=== PATIENT | female | born 1995 | race Caucasian/White ===

== ENCOUNTER 2020-05-14 11:09 | Outpatient (CLI) | payer OTHER, SELFPAY ==
[2020-05-14 11:53] LABS: Basophils Percent Auto 0.5 % (0.2-1.2); Eosinophils Absolute Auto 0.1 K/mm3 (0-0.3); Eosinophils Percent Auto 1.2 % (0-4.4); Hematocrit 38.5 % (37.0-47.0); Hemoglobin 13.1 g/dL (12.0-15.0); Immature Granulocyte Absolute 0.03 K/mm3 (0.00-0.031); Immature Granulocyte Percent A 0.4 % (0-0.5); Lymphocytes Absolute Auto 1.54 K/mm3 (0.9-3.2); Lymphocytes Percent Auto 20.5 % (18.3-44.2); Mean Corpuscular Hemoglobin 29.7 pg (26-34); Mean Corpuscular Volume 87.3 fl (80-100); Mean Platelet Volume 11.6 fl (7.4-10.4); Monocytes Absolute Auto 0.5 K/mm3 (0.1-0.6); Neutrophils Absolute Auto 5.4 K/mm3 (1.3-6.7); Neutrophils Percent Auto 71.4 % (45.5-73.1); Platelet Count Result 196 k/mm3 (150-375); Red Blood Count 4.41 M/mm3 (4.2-5.4); Red Cell Distribution Width 13.1 % (11.5-14.5); White Blood Count 7.5 K/mm3 (4.5-10.0)
[2020-05-14 11:58] LABS: Add Urine Microscopic? YES; Appearance Urine Clear (Clear); Bacteria Urine Trace /hpf; Bilirubin Urine Negative (Negative); Blood Urine Negative (Negative); Color Urine Straw (Yellow); Glucose Urine UA Negative (Negative); Ketones Urine Negative (Negative); Leukocyte Esterase Ur 3+ LEU/UL (NEGATIVE); Mucus Urine Rare /lpf; Nitrate Urine Negative (Negative); Protein Urine Negative (Negative); Specific Grav Ur 1.012 (1.001-1.035); Squamous Epithelial Cell Urine Many /hpf (Few); Urobilinogen Urine Negative mg/dL (<2.0)
[2020-05-14 12:48] LABS: HIV 1/2 Ab P24 Ag Result Negative (Negative)
[2020-05-14 12:49] LABS: Vitamin D 25 Hydroxy 37.1 ng/mL
[2020-05-14 13:10] LABS: Hepatitis B Surface Antigen Negative (Negative)
[2020-05-14 13:22] LABS: Hepatitis C Virus Antibody Negative (Negative)
[2020-05-16 07:05] LABS: Rapid Plasma Reagin Non-Reactive (NonReactive)
[2020-05-16 14:17] LABS: Hematocrit 38.8 % (35.0-45.0); Hemoglobin 13.1 g/dL (11.7-15.5); MCH 29.8 pg (27.0-33.0); MCV 88.4 FL (80.0-100.0); RDW 13.6 % (11.0-15.0); Red Blood Cell Count 4.39 Mill/uL (3.80-5.10)
== END 2020-05-14 11:10 | disposition home or self-care (01) ==
PROVIDERS: Visit Provider Obstetrics & Gynecology
DX: Z34.90 Encounter for supervision of normal pregnancy, unspecified, unspecified trimester (principal)
CPT/HCPCS: 36415; 81001; 82306; 83021; 84443; 85025; 86592; 86703; 86762; 86787; 86803; 86850; 86900; 86901; 87086; 87340; G0432

== ENCOUNTER 2020-07-26 11:37 | Outpatient (CLI) | payer OTHER, SELFPAY ==
--- NOTE | 2020-07-26 | ECG_ITS ---
Measurements Intervals [place] Rate: 74 P: 43 OK: 153 QRS: 16 QRSD: 86 T: 18 QT: 344 QTc: 382 Interpretive Statements SINUS RHYTHM CANNOT RULE OUT SEPTAL INFARCT, AGE INDETERMINATE ABNORMAL ECG Electronically Signed On 07-26-2020 12:06:41 CDT by Alfred Roca D.O.
[2020-07-26 12:04] LABS: Alanine Aminotransferase 12 U/L (4-35); Albumin Level 3.6 g/dL (3.5-5.1); Alkaline Phosphatase 54 U/L (38-126); Anion Gap 3 mmol/L (8-16); Aspartate Amino Transferase 19 U/L (14-36); Bilirubin,Total 0.1 mg/dL (0.2-1.3); Blood Urea Nitrogen 11 mg/dL (7-17); Calcium 8.8 mg/dL (8.4-10.2); Carbon Dioxide 28 mmol/L (22-30); Chloride 104 mmol/L (98-107); Estimated Glomerular Filt Rate > 60; Glucose 80 mg/dL (65-105); Potassium 4.4 mmol/L (3.4-5.0); Sodium 135 mmol/L (137-145)
== END 2020-07-26 11:38 | disposition home or self-care (01) ==
LOC: ANHLAB 11:40
PROVIDERS: PCP Obstetrics & Gynecology; Visit Provider Obstetrics & Gynecology
DX: R55 Syncope and collapse (principal); R94.31 Abnormal electrocardiogram [ECG] [EKG]
CPT/HCPCS: 36415; 80053; 93005

== ENCOUNTER 2020-08-20 10:49 | Outpatient (CLI) | payer OTHER, SELFPAY ==
[2020-08-20 12:16] LABS: Basophils Absolute Auto 0.1 K/mm3 (0.0-0.1); Basophils Percent Auto 0.6 % (0.2-1.2); Eosinophils Absolute Auto 0.1 K/mm3 (0-0.3); Eosinophils Percent Auto 1.1 % (0-4.4); Hematocrit 36.6 % (37.0-47.0); Immature Granulocyte Absolute 0.05 K/mm3 (0.00-0.031); Immature Granulocyte Percent A 0.6 % (0-0.5); Lymphocytes Absolute Auto 1.46 K/mm3 (0.9-3.2); Lymphocytes Percent Auto 17.4 % (18.3-44.2); Mean Corpuscular HGB Conc 32.8 g/dl (32-36); Mean Corpuscular Hemoglobin 30.2 pg (26-34); Mean Corpuscular Volume 92.2 fl (80-100); Mean Platelet Volume 11.8 fl (7.4-10.4); Monocytes Absolute Auto 0.4 K/mm3 (0.1-0.6); Monocytes Percent Auto 4.8 % (2.6-8.5); Neutrophils Absolute Auto 6.3 K/mm3 (1.3-6.7); Neutrophils Percent Auto 75.5 % (45.5-73.1); Platelet Count Result 164 k/mm3 (150-375); Red Blood Count 3.97 M/mm3 (4.2-5.4); Red Cell Distribution Width 13.3 % (11.5-14.5); White Blood Count 8.4 K/mm3 (4.5-10.0)
[2020-08-20 12:36] LABS: Glucose 1 Hour PP 50gm Dose 108 mg/dL
== END 2020-08-20 10:50 | disposition home or self-care (01) ==
PROVIDERS: Visit Provider Obstetrics & Gynecology
DX: Z34.92 Encounter for supervision of normal pregnancy, unspecified, second trimester (principal); Z3A.26 26 weeks gestation of pregnancy
CPT/HCPCS: 36415; 82947; 85025

== ENCOUNTER 2020-10-01 11:04 | Outpatient (CLI) | payer OTHER, SELFPAY ==
[2020-10-01 11:36] LABS: Basophils Percent Auto 0.4 % (0.2-1.2); Eosinophils Absolute Auto 0.1 K/mm3 (0-0.3); Eosinophils Percent Auto 1.3 % (0-4.4); Hematocrit 36.7 % (37.0-47.0); Hemoglobin 11.9 g/dL (12.0-15.0); Immature Granulocyte Absolute 0.05 K/mm3 (0.00-0.031); Immature Granulocyte Percent A 0.5 % (0-0.5); Lymphocytes Absolute Auto 1.44 K/mm3 (0.9-3.2); Lymphocytes Percent Auto 14.7 % (18.3-44.2); Mean Corpuscular HGB Conc 32.4 g/dl (32-36); Mean Corpuscular Hemoglobin 29.8 pg (26-34); Mean Corpuscular Volume 91.8 fl (80-100); Mean Platelet Volume 12.1 fl (7.4-10.4); Monocytes Absolute Auto 0.7 K/mm3 (0.1-0.6); Monocytes Percent Auto 6.7 % (2.6-8.5); Neutrophils Absolute Auto 7.5 K/mm3 (1.3-6.7); Neutrophils Percent Auto 76.4 % (45.5-73.1); Platelet Count Result 136 k/mm3 (150-375); Red Cell Distribution Width 13.2 % (11.5-14.5); White Blood Count 9.8 K/mm3 (4.5-10.0)
[2020-10-01 12:26] LABS: HIV 1/2 Ab P24 Ag Result Negative (Negative)
[2020-10-02 08:45] LABS: Rapid Plasma Reagin Non-Reactive (NonReactive)
== END 2020-10-01 11:05 | disposition home or self-care (01) ==
PROVIDERS: Visit Provider Obstetrics & Gynecology
DX: Z34.90 Encounter for supervision of normal pregnancy, unspecified, unspecified trimester (principal)
CPT/HCPCS: 36415; 85025; 86592; 86703; G0432

== ENCOUNTER 2020-11-08 12:03 | Observation (INO) | payer OTHER, SELFPAY ==
--- NOTE | 2020-12-06 17:40 | PM.OBTRLD ---
OB - Triage/Final Diagnosis Visit Information Comments/Additional reasons for admission: I have assessed the risk for this patient, Porfirio Kong, and determined that she would benefit from observation care. Final Diagnosis (1) Cramping affecting , antepartum: Code(s): O26.899 - Other specified related conditions, unspecified trimester; R10.9 - Unspecified abdominal pain Status: Acute
== END 2020-11-08 13:55 | disposition home or self-care (01) ==
PROVIDERS: Admitting Provider Student in an Organized Health Care Education/Training Program; Visit Provider Student in an Organized Health Care Education/Training Program
DX: O26.899 Other specified pregnancy related conditions, unspecified trimester (principal); R10.9 Unspecified abdominal pain; Z3A.00 Weeks of gestation of pregnancy not specified
CPT/HCPCS: G0378; G0379

== ENCOUNTER 2020-11-20 21:07 | Inpatient (IN) | payer OTHER, SELFPAY ==
[2020-11-20] VITALS (9 sets, daily range): BP systolic 115–123; BP diastolic 66–80; PULSE 79–91; RESP 16; TEMP 36.1; BMI 32.6
[2020-11-20 22:49] LABS: Basophils Percent Auto 0.2 % (0.2-1.2); Eosinophils Absolute Auto 0.1 K/mm3 (0-0.3); Eosinophils Percent Auto 1.3 % (0-4.4); Hematocrit 37.3 % (37.0-47.0); Hemoglobin 11.6 g/dL (12.0-15.0); Immature Granulocyte Absolute 0.05 K/mm3 (0.00-0.031); Immature Granulocyte Percent A 0.6 % (0-0.5); Immature Platelet Fraction Pct 16.3 % (0.9-11.2); Lymphocytes Absolute Auto 1.52 K/mm3 (0.9-3.2); Lymphocytes Percent Auto 18.2 % (18.3-44.2); Mean Corpuscular HGB Conc 31.1 g/dl (32-36); Mean Corpuscular Hemoglobin 28.4 pg (26-34); Mean Corpuscular Volume 91.2 fl (80-100); Mean Platelet Volume 13.4 fl (7.4-10.4); Monocytes Absolute Auto 0.7 K/mm3 (0.1-0.6); Monocytes Percent Auto 8.6 % (2.6-8.5); Neutrophils Absolute Auto 5.9 K/mm3 (1.3-6.7); Neutrophils Percent Auto 71.1 % (45.5-73.1); Platelet Count Result 148 k/mm3 (150-375); Red Blood Count 4.09 M/mm3 (4.2-5.4); Red Cell Distribution Width 14.1 % (11.5-14.5); White Blood Count 8.4 K/mm3 (4.5-10.0)
--- NOTE | 2020-11-20 22:55 | LDADM ---
This patient, Porfirio Kong, was admitted to Labor/Delivery/Recovery 107 on 11/20/20 at 21:07. Plans for labor, pain management and were discussed with patient. Patient/family oriented to hospital policies and general routines including ID bracelet, bed and alarms, visiting hours, pain management, procedures, bathroom and other care routines, personal items, smoking policy, room service/diet and guest tray routines, security routines, and visiting hours. Patient/Family are encouraged to report perceived risks to care and to ask questions if they do not understand what they are told or what they should do. See OBIX for further documentation.
[2020-11-20] MEDS: DINOPROSTONE 10 MG VAG INSERT VAGINAL (23:32)
[2020-11-21] VITALS (202 sets, daily range): BP systolic 62–166; BP diastolic 42–137; PULSE 66–163; TEMP 36.2–37.4; O2SAT 90–100
[2020-11-21] MEDS: LACTATED RINGERS 1,000 ML 125 ML IV CONT ×4 (04:24→17:18)
--- NOTE | 2020-11-21 09:04 | PM.IMHP ---
H&P: HPI History of Present Illness Date/Time: 11/21/20 09:04 Patient is a at 39 weeks admitted for [facility] for polyhydraminios. PNC significant for history of shoulder dystocia. She has been counseled on risk of recurrence and discussed option of ceserean section and discussed risk benefits of ceserean section versus vaginal delivery. The late third trimester ultrasound was performed to evaluate the efW. The recent ultrasound did show an EFW consistent with her last child and the polyhydramnios. She has been counseled regarding risk of polyhydramnios and recommendation for medical induction of labor. She originally did not want to get induced but we have discussed in the past the risk of prolonged which can result in larger baby and increase risk of dystocia and ceserean section. She has been informed of risk of dystocia to include emergency ceserean section and need for general anesthesia if she does not have epidural. She voiced understanding. PNC also significant for history of gestational hypertension. She has not had any signs or symptoms of pre-eclampsia. Chief Complaint: Medical induction of labor, polyhydramnios. Review of Systems Review of Systems: All systems reviewed & are unremarkable except as noted in HPI and below Constitutional: Constitutional: Reports no additional constitutional complaints and Denies headache(s) Eyes: Eyes: Denies spots in vision ENT: Reports system reviewed and no additional complaints, except as documented and Denies headache(s) Cardiovascular: Cardiovascular: Denies chest pain and Denies dyspnea Respiratory: Respiratory: Denies dyspnea Gastrointestinal: Gastrointestinal: Reports no additional gastrointestinal complaints Genitourinary: Genitourinary: Reports amenorrhea Musculoskeletal: Musculoskeletal: Reports no additional musculoskeletal complaints Integumentary/Breasts: Skin/Breast: Denies breast mass and Denies rash Neurologic: Denies headache(s) Psychiatric: Psychiatric: Reports no additional psychiatric complaints PMFSH Social History Social History Smoking status: Never smoker Substance use: never Gender identity (if verbalized by the patient): Female Spiritual care concerns: No Meds Home Medications and Allergies Home Medications Medication Instructions Recorded Confirmed Type PNV no.[id number]-[id number] acid 1 tablet PO DAILY 11/20/20 11/20/20 History [Complete ] Allergies Allergy/AdvReac Type Severity Reaction Status Date / Time No Known Allergies Allergy Verified 11/20/20 23:05 Vital Signs Vital Signs - 24 hr 11/20/20 21:35 11/20/20 21:46 11/20/20 22:01 Temperature Pulse Rate 88 86 87 Respiratory Rate Blood Pressure 115/74 123/66 123/76 11/20/20 22:16 11/20/20 22:31 11/20/20 22:46 Temperature Pulse Rate 86 91 79 Respiratory Rate Blood Pressure 120/67 118/80 116/72 11/20/20 23:01 11/20/20 23:07 11/20/20 23:31 Temperature 97.0 F L Pulse Rate 87 82 Respiratory Rate 16 Blood Pressure 117/71 120/78 11/21/20 00:01 11/21/20 00:31 11/21/20 01:01 Temperature Pulse Rate 88 85 82 Respiratory Rate Blood Pressure 119/70 120/71 120/70 11/21/20 01:31 11/21/20 02:01 11/21/20 04:25 Temperature 98.2 F Pulse Rate 91 90 Respiratory Rate Blood Pressure 122/76 121/70 11/21/20 04:26 11/21/20 04:31 11/21/20 04:46 Temperature Pulse Rate 95 96 86 Respiratory Rate Blood Pressure 124/73 123/93 H 131/80 11/21/20 05:01 11/21/20 05:16 11/21/20 05:31 Temperature Pulse Rate 94 86 83 Respiratory Rate Blood Pressure 137/81 137/79 127/79 11/21/20 05:46 11/21/20 06:02 11/21/20 06:16 Temperature Pulse Rate 86 118 H 82 Respiratory Rate Blood Pressure 130/72 105/60 118/63 11/21/20 06:31 11/21/20 06:45 11/21/20 06:46 Temperature 99.3 F Pulse Rate 85 86 Respiratory Rate Blood Pressure 109/63 109/56 L 11/21/20 07:02 11/21/20 07:16 11/21/20
--- NOTE | 2020-11-21 10:25 | P.PNOB_ITS ---
OB - PN: Subj Subjective Date/time seen: 11/21/20 0730 Cervidil removed 0430 due to tachysystole. FHT 140, Cat1, ctx q 2-6, mild to moderate. AROM 0707 clear. Cervix 3-4/60/-2, clear. Will observe, if does not progress into active labor then will start Pitocin augmentation. OB - PN: Obj Data Labs CBC & Chem 7: 11/20/20 22:33 Labs: Laboratory Results - last 24 hr 11/20/20 11/20/20 22:33 22:33 WBC 8.4 RBC 4.09 L Hgb 11.6 L Hct 37.3 MCV 91.2 MCH 28.4 MCHC 31.1 L RDW 14.1 Plt Count 148 L MPV 13.4 H Immature Gran % (Auto) 0.6 H Neut % (Auto) 71.1 Lymph % (Auto) 18.2 L [place] % (Auto) 8.6 H Eos % (Auto) 1.3 Baso % (Auto) 0.2 Lymph # (Auto) 1.52 [place] # (Auto) 0.7 H Eos # (Auto) 0.1 Baso # (Auto) 0.0 Abs Immat Gran (auto) 0.05 H Absolute Neuts (auto) 5.9 Absolute Nucleated RBC 0.0 Nucleated RBC % 0.0 % Immature Plt Fraction 16.3 H Blood Type A Positive Antibody Screen Negative OB - PN A/P Time Spent With Patient Time: Total time spent is greater than 50% in coordination of care (as documented) at patient's floor/unit and/or counseling patient:
[2020-11-21 10:31] LABS: Rapid Plasma Reagin Non-Reactive (NonReactive)
--- NOTE | 2020-11-21 13:22 | WPDANESEPPF ---
Anes - Initial Pre Proc Eval Date/Time: 11/21/20 13:22 Surgeon: Kelechi Peterson MD Pre Op Diagnosis: IOL Patient Data Age: 25 Gender: F Height: 1.57 m Weight: 81 kg Last Vital Signs Temp 36.2 C L 11/21/20 12:15 Pulse 90 11/21/20 13:16 Resp 16 11/20/20 23:07 BP 120/86 11/21/20 13:16 Allergies Allergy/AdvReac Type Severity Reaction Status Date / Time No Known Allergies Allergy Verified 11/20/20 23:05 Home Medications Medication Instructions Recorded Confirmed Type PNV no.[id number] acid 1 tablet PO DAILY 11/20/20 11/20/20 History [Complete ] Laboratory Tests 11/20/20 11/20/20 11/20/20 22:33 22:33 22:33 WBC 8.4 K/mm3 K/mm3 (4.5-10.0) RBC 4.09 M/mm3 L M/mm3 (4.2-5.4) Hgb 11.6 g/dL L g/dL (12.0-15.0) Hct 37.3 % % (37.0-47.0) MCV 91.2 fl fl (80-100) MCH 28.4 pg pg (26-34) MCHC 31.1 g/dl L g/dl (32-36) RDW 14.1 % % (11.5-14.5) Plt Count 148 k/mm3 L k/mm3 (150-375) MPV 13.4 fl H fl (7.4-10.4) Immature Gran % (Auto) 0.6 % H % (0-0.5) Neut % (Auto) 71.1 % % (45.5-73.1) Lymph % (Auto) 18.2 % L % (18.3-44.2) [place] % (Auto) 8.6 % H % (2.6-8.5) Eos % (Auto) 1.3 % % (0-4.4) Baso % (Auto) 0.2 % % (0.2-1.2) Lymph # (Auto) 1.52 K/mm3 K/mm3 (0.9-3.2) [place] # (Auto) 0.7 K/mm3 H K/mm3 (0.1-0.6) Eos # (Auto) 0.1 K/mm3 K/mm3 (0-0.3) Baso # (Auto) 0.0 K/mm3 K/mm3 (0.0-0.1) Abs Immat Gran (auto) 0.05 K/mm3 H K/mm3 (0.00-0.031) Absolute Neuts (auto) 5.9 K/mm3 K/mm3 (1.3-6.7) Absolute Nucleated RBC 0.0 K/mm3 K/mm3 (0.0-0.012) Nucleated RBC % 0.0 % % (0.0-0.2) % Immature Plt Fraction 16.3 % H % (0.9-11.2) RPR Non-reactive (NonReactive) Blood Type A Positive Antibody Screen Negative Patient hx anesthesia problems: none Family hx anesthesia problems: none PMFSH Social History Social History Smoking status: Never smoker Substance use: never Gender identity (if verbalized by the patient): Female Spiritual care concerns: No Anes - Eval Final PreProcedure Day of Procedure 11/21/20 13:22 Patient weight: obese Heart: regular rate and rhythm Lungs: clear to auscultation and normal air movement Airway: Mallampati scale class II Neurological: alert and oriented Last oral intake: >/= 8 hours ASA classification: II Emergent: no Anesthetic plan: proceed Anesthesia type and monitoring: regional epidural Informed Consent: The patient's anesthetic plan and its attendant risks and benefits were discussed with the patient/family/POA. Questions were solicited and answers provided to the satisfaction of the patient/family/POA.
[2020-11-21] MEDS: OXYTOCIN 30 UNITS/NS 500 ML 30 UNITS/500 ML BAG IV CONT (15:46)
--- NOTE | 2020-11-21 19:04 | PM.OBPNVD ---
OB - PN: Subj Subjective Date/time seen: 11/21/20 19:04 FHT 135, Cat 1, pt feeling rectal pressure, cervix rim/90/0. Continue pitocin. OB - PN: Obj Data Labs CBC & Chem 7: 11/20/20 22:33 Labs: Laboratory Results - last 24 hr 11/20/20 11/20/20 11/20/20 22:33 22:33 22:33 WBC 8.4 RBC 4.09 L Hgb 11.6 L Hct 37.3 MCV 91.2 MCH 28.4 MCHC 31.1 L RDW 14.1 Plt Count 148 L MPV 13.4 H Immature Gran % (Auto) 0.6 H Neut % (Auto) 71.1 Lymph % (Auto) 18.2 L [place] % (Auto) 8.6 H Eos % (Auto) 1.3 Baso % (Auto) 0.2 Lymph # (Auto) 1.52 [place] # (Auto) 0.7 H Eos # (Auto) 0.1 Baso # (Auto) 0.0 Abs Immat Gran (auto) 0.05 H Absolute Neuts (auto) 5.9 Absolute Nucleated RBC 0.0 Nucleated RBC % 0.0 % Immature Plt Fraction 16.3 H RPR Non-reactive Blood Type A Positive Antibody Screen Negative OB - PN A/P Time Spent With Patient Time: Total time spent is greater than 50% in coordination of care (as documented) at patient's floor/unit and/or counseling patient:
--- NOTE | 2020-11-21 22:54 | PM.OBPRVD ---
OB - Delivery Note Procedure Delivery date: 11/21/20 Procedure: Spontaneous vaginal delivery events: Polyhydramnios Induction method: per cervidil protocol Delivery augmentation: rupture of membranes Delivery monitor: external FHT Route of delivery: Laceration Description: Perineal - 1st Degree Delivery repair: vicryl (3.0 vicryl) Specimen: Yes (Placenta and cord) Quantitative Blood Loss (ml): 200 Anesthesia type: Epidural Disposition: floor Complications: Shoulder dystocia. Narrative: Patient admitted on 11/20/20 for [facility] for polyhydramnios at term. Her cervix on admission was not favorable. She was informed of recommendation for induction and risk and benefits of induction. She has been informed of risk of shoulder dystocia during labor due to her having a prior shoulder dystocia. She wanted to proceed with induction. Declined . Cervidil was placed on 11/20/20. The morning of 11/21, she had made cervical change and was 3 cm dilated. She had assisted rupture of membranes clear. She did progress spontaneously into active labor. She requested epidural and it was placed. Her contraction pattern had decreased when she was 7-8 and she was pitocin augmented. She progressed to complete. She was pushing well. Infants head was delivered, rotated to the FRANCY position, there was a tight nuchal cord which was surgicly reduced. She did have a mild shoulder dystocia lasting approximately 29minutes. The dystocia was relieved with modified Manfred and suprapubic pressure. The infant was then placed on maternal abdomen and taken to warmer. Placenta delivered spontaneously and intact. She sustained a first degree laceration at introitus and perineum repaired with simple sutures of 0.vicryl. was taken to nursery. Patient tolerated procedure well. Baby Date of : 11/21/20 Time of : 22:22 Weeks of gestation at delivery: 39 gender: Male presentation: vertex position: Right Occiput Anterior Placenta delivery description: Spontaneous cord vessel description: Nuchal Cord and Tight
[2020-11-21] MEDS: OXYTOCIN 30 UNITS/NS 500 ML 30 UNITS/500 ML BAG 125 UNITS IV CONT (23:05)
[2020-11-22] VITALS (10 sets, daily range): BP systolic 115–130; BP diastolic 68–99; PULSE 72–107; RESP 15–16; TEMP 36.6–37.3; O2SAT 98–100
[2020-11-22] MEDS: WITCH HAZEL 40 PADS 1 PAD TOPICAL (00:34)
[2020-11-22] MEDS: BENZOCAINE 20% AER SPR (*SP) 56 GM CAN 1 SPRAY TOPICAL (00:34)
[2020-11-22] MEDS: IBUPROFEN SUSPENSION 200 MG/10 ML UDC 600 MG PO ×4 (01:17→20:37)
--- NOTE | 2020-11-22 01:57 | OBPPTRN ---
Patient transferred to post room #284 via wheelchair. Support person present. Oriented to unit, room, information board, rooming in, admission packet and security measures. Patient verbalizes understanding.
[2020-11-22] MEDS: ACETAMINOPHEN ELIXIR 325 MG/10.15 ML UDC 650 MG PO (04:27)
[2020-11-22 05:46] LABS: Hematocrit 35.7 % (37.0-47.0); Hemoglobin 11.3 g/dL (12.0-15.0)
[2020-11-22] MEDS: LANOLIN (LANSINOH) 7.5 GM CREAM 1 APPLIC TOPICAL (08:17)
--- NOTE | 2020-11-22 09:34 | P.PNOB_ITS ---
OB - PN: Subj Subjective Date/time seen: 11/22/20 09:34 OB - PN: Obj Data Labs CBC & Chem 7: 11/22/20 05:35 Labs: Laboratory Results - last 24 hr 11/20/20 11/22/20 22:33 05:35 Hgb 11.3 L Hct 35.7 L RPR Non-reactive OB - PN A/P Time Spent With Patient Time: Total time spent is greater than 50% in coordination of care (as docume nted) at patient's floor/unit and/or counseling patient:
--- NOTE | 2020-11-22 11:02 | P.PNOB_ITS ---
OB - PN: Subj Subjective Date/time seen: 11/22/20 11:02 Patient comments: pain well controlled, tolerating diet and other (Decreasing lochia.) baby status: doing well and nursing well [place] feeding status: exclusively breast feeding OB - PN: Obj Data Labs CBC & Chem 7: 11/22/20 05:35 Labs: Laboratory Results - last 24 hr 11/22/20 05:35 Hgb 11.3 L Hct 35.7 L OB - PN A/P Plan day: 1 Plan: routine care Comments: Patient doing well. Continue routine care. Time Spent With Patient Time: Total time spent is greater than 50% in coordination of care (as documented) at patient's floor/unit and/or counseling patient: Exam Const: General: comfortable and no acute distress Eyes: General: appearance normal, both eyes and all related structures Resp: Effort & Inspection: normal respiratory effort GI: Other: nontender, fundus -3 nontender Psych: Affect: normal affect Other: Abd: fundus firm below umbilicus, nontender Perineum: healing Ext: nontender
--- NOTE | 2020-11-22 12:11 | WPDANLDPN2 ---
Anes-Prog Note L&D Date/Time: 11/22/20 12:11 Comfortable throughout: labor and delivery Neuraxial method: epidural Epidural/Spinal procedure site: clean & non-tender Neuro status: Neuro function grossly intact. Cardiovascular status: normal Respiratory status: normal Airway patency: baseline Mental status: baseline Post-Op hydration status: normal Vital Signs: Last Vital Signs Temp 36.6 C 11/22/20 11:49 Pulse 75 11/22/20 11:49 Resp 16 11/22/20 11:49 BP 116/73 11/22/20 11:49 Pulse Ox 99 11/22/20 11:49 Pain score (VAS): 05/20 I/O: Intake & Output 11/21/20 11/22/20 11/22/20 23:59 07:59 15:59 Intake Total 1000 1500 Output Total 200 53 Balance 800 1447 Post-procedural complaints: none Patient feedback: Patient satisfied with anesthetic care.
[2020-11-23] MEDS: IBUPROFEN SUSPENSION 200 MG/10 ML UDC 600 MG PO ×2 (02:33→10:00)
--- NOTE | 2020-11-23 09:20 | PC.NURSE ---
Observed mother is able to independently latch with appropriate positioning/alignment. She denies any nipple discomfort, is feeding as required and waking infant to feed if needed. has had at least 8 effective feedings in the past 24 hours, and is currently meeting outcomes for weight, output, jaundice and feeding frequencies. Mother states she feels confident to continue effective at home. Reviewed transition to breast milk, signs of adequate intake, and engorgement/relief. Instructed to call ICP if intake/output less than required. Reviewed regular medications mother is taking. Information provided per [place]. Reviewed community resources on the [facility] website and in the Mom/Baby guide. Information on outpatient services provided. Mother has no further questions at this time.
[2020-11-23 09:25] VITALS: BP 122/77; PULSE 78; RESP 18; TEMP 36.4; O2SAT 99
[2020-11-23] MEDS: WITCH HAZEL 40 PADS 1 PAD TOPICAL (10:00)
[2020-11-26 09:32] VITALS: BP 119/84; PULSE 75; RESP 20; TEMP 37; O2SAT 100
--- NOTE | 2020-12-18 11:10 | PM.OBDSVD ---
DS: Admitting Diagnosis Admitting Diagnosis 1. Polyhydramnios 2. Medical induction of labor DS: Discharge Diagnosis Discharge Diagnosis (1) Delivery normal: Code(s): O80 - Encounter for full-term uncomplicated delivery Status: Acute OB - DS: Summary Hospital Course Hospital Course: Patient admitted for medical induction of labor for polyhydramnios at term. She underwent Cervidil application. Cervidil was in for 12 hours and after that her cervix was noted to be 3 cm. She had assisted rupture of membranes. She progressed into active labor. She did eventually need of Pitocin for augmentation. She dilated to complete. She had a vaginal delivery complicated by shoulder dystocia. She sustained a second-degree vaginal laceration which was repaired. Post patient had tell bone discomfort she was given Tylenol and Motrin. She was ambulating and tolerating regular food and was discharged home on day 2. Discharge instructions provided. She was informed that after approximately 2 weeks I would recommend her see the pelvic floor physical therapist to help with her tailbone pain. She was instructed to make a follow up within 2 weeks. OB Procedures : Ultrasound OB Procedures Intrapartum: Spontaneous Vag Delivery OB Procedures: : None Peripartum Data Delivery Method: Natural Vaginal Laceration Description: Perineal - 2nd Degree Status at Discharge Functional status at discharge: independent ambulation Time Spent with Patient Time attestation: Total time spent providing and/or coordinating discharge services: Exam Const: General: cooperative Orientation/consciousness: oriented to person, oriented to place and oriented to time HENMT: General nose exam: Normal external nose present Eyes: General: appearance normal, both eyes and all related structures Resp: Effort & Inspection: normal respiratory effort GI: Inspection: normal to inspection Skin: General skin exam: normal color Neuro: General: oriented to person, oriented to place and oriented to time Extrem: General: normal to inspection and no calf tenderness Psych: Appearance: grossly normal Mental Status: mental status grossly normal DS: Data Data Completed and Pending Completed studies during hospitalization: Pending at discharge 11/21/20 22:26 Surgical [PTH] Routine Discharge Plan Discharge Attending physician on discharge: Kelechi Peterson Consulting providers: Ai Reynolds ; Susu Nichole ; Parvez Pate Discharging Clinician: Kelechi Peterson Anticipated Discharge Date/Time: 11/23/20 09:49 Patient Disposition: Home, Self-Care Activity: may shower and pelvic rest Diet: regular Discharge Instructions: Education: Mom and Baby Guide Given to: Follow-Up: Call your delivering provider's office for an appointment to be seen in: 2 Weeks [facility]. Appointment Date/Time: November 26, 2020 at 9:00 am What to expect at your follow-up visit: Blood Pressure Check Physical Assessment Call [phone] if you are unable to keep your appointment time. BREAST CARE: * Wear a snug supportive bra. * For engorgement discomfort: Breast Feeding: * Apply warm moist washcloths * Express milk as needed to relieve engorgement * Wear loose clothing * For sore nipples: * Identify correct latch-on * Apply warm moist washcloths before and after nursing * Air dry nipples after nursing * May apply Lansinoh cream to nipples EPISIOTOMY/PERINEAL CARE: * Until bleeding stops, use your agustina bottle after urinating * Change your pad frequently throughout the day * You may take sitz baths several times a day (fill your bathtub with warm water and soak for 20 minutes.) Do NOT bathe in the water * No tub baths until seen by your physicia
== END 2020-11-23 15:28 | disposition home or self-care (01) | DRG 807 ==
LOC: ANHLDR 21:16 → ANHOB2 11-22 02:00
PROVIDERS: Admitting Provider Obstetrics & Gynecology; Visit Provider Obstetrics & Gynecology
DX: O40.3XX0 Polyhydramnios, third trimester, not applicable or unspecified (principal); Z37.0 Single live birth; Z3A.39 39 weeks gestation of pregnancy; O69.1XX0 Labor and delivery complicated by cord around neck, with compression, not applicable or unspecified; O36.8330 Maternal care for abnormalities of the fetal heart rate or rhythm, third trimester, not applicable or unspecified; O70.0 First degree perineal laceration during delivery; O99.214 Obesity complicating childbirth; E66.9 Obesity, unspecified
CPT/HCPCS: 36415; 85014; 85018; 85025; 85055; 86592; 86850; 86900; 86901; 88307; A9270; J2590; J2795; J7120

== ENCOUNTER 2021-01-09 10:50 | Outpatient (RCR) | payer OTHER, SELFPAY ==
--- NOTE | 2021-01-09 13:17 | PC.NURSE ---
PT SEEN ON 01-09-2021 IN 1000 OUT 1055 HISTORY: Pt. delivered at [facility] at 39 weeks. had no complications after delivery. Mother had no complications after delivery. is now 7 weeks old. appears to be well cared for. Infant has been seen by ICP as scheduled. last seen by ICP on at 1 month. Mother reports is adequately gaining weight Mother reports: Mother states she was told had a tight frenulum while in the hospital and feels upper lip is tight also. Mother has struggled with maintaining deep latch. She has on and off tenderness to nipples. Mother was to discuss with her ICP and reported latching was improving and within the last few days pain has increased. Infant fights to maintain latch and is on and off several times during the feeding. Mother will pump and bottle feed for a few feedings to allow nipples to heal. Currently at 8+ wets per day and 3-4 yellow seedy stools per day. Mother wishes: To improve latch and heal nipple tenderness. OBSERVATION: Tongue appears to be posterior tight. Infant keeps back of tongue up and does not thrust tongue past gum ridge. Bottom lip will flange, upper lip appears to have a tight frenulum and not flange. Mother has everted nipples with skin intact redness noted no blisters, scabbing or abrasions noted. Observed mother putting to breast. Mother uses cradle and will latch deeply for a few draws, nipple then slips to shallow latch. is on and off with feeding. Mother will make attempts to correct with same results. Suggested mother hold breast, in C hold and assist maintaining deep latch. Mother reports this is how she will feed when nipples are tender. Suggested she continue to hold to maintain so nipples will not become so tender with feedings. Attempted infant to breast in football to assist with maintaining deep latch, mother reports same in tenderness if she is not continually holding breast. Discussed a nipple shield and how this may help with nipple tenderness. Suggested mother see ICP for referral before shield use. Suggest mother discuss infant tongue and lip with her ICP for further discussion with ENT or Pediatric dentistry for evaluation of tongue and lip. PLAN: Mother will follow above to assist with maintaining deep latch and seek evaluation for possible tight posterior tongue. Mother will call with further questions or concerns.
== END 2021-01-29 13:43 | disposition home or self-care (01) ==
LOC: ANHOBOP 10:50
PROVIDERS: Visit Provider Obstetrics & Gynecology
DX: Z46.1 Encounter for fitting and adjustment of hearing aid (principal)
CPT/HCPCS: 99212; G0463